=== PATIENT | female | born 2000 | race Two or more races ===

== ENCOUNTER 2021-05-15 09:13 | Emergency (ER) | payer BC, OTHER ==
[~2021-05-15] VITALS: Ht 157.5 cm; Wt 89.1 kg
[~2021-05-15 09:13] MED LIST: AZIT500T2 PO; DOCU-131 PO; FERR240T PO; IBUP-1222 PO; OXYC1TAB12 PO
[2021-05-15] MEDS ORDERED: HYDROcodone/APAP 5/325 TABLET PO ONE (10:00)
[2021-05-15] MEDS ORDERED: SODIUM CHLORIDE FLUSH 10ML SYR IVF ONE (10:00)
[2021-05-15] MEDS ORDERED: HYDROcodone/APAP 5/325 TABLET ONE (10:09)
--- NOTE | 2021-05-15 10:13 | NUR ---
THIS IS A 21 YO F W/ C/O RLQ ABD PAIN THAT RADIATES INTO RT FLANK STARTING YESTRDAY. PT REPORTS HX OF RUTPTURED OVARIAN CYST THAT REQUIRED SX D/T BLEEDING. PT STATES CURRENTLY ON PERIOD. PT RESTING ON GURNEY W/ CALL LIGHT IN REACH AND SIDE RAILS UPX2. RESP EVEN AND UNLABORED, NADN. PIV STARTED, LABS DRAWN. PT AMBULATORY W/ A STEADY GAIT TO THE BR. URINE COLLECTED AND SENT TO LAB. PT MEDICATED PER EMAR.
[2021-05-15 10:20] LABS: MICROSCOPIC AUTO
[2021-05-15 10:26] LABS: BASOPHILS % (AUTO) 1 % (0-1); EOSINOPHILS % (AUTO) 1 % (1-7); LYMPHOCYTES % (AUTO) 20 % (22-44); MEAN CORPUSCULAR HEMOGLOBIN 30.4 pg (27.0-34.8); MEAN CORPUSCULAR HGB CONC 33.5 g/dL (32.4-35.8); MEAN PLATELET VOLUME 8.7 fL (7.4-10.4); MONOCYTES % (AUTO) 4 % (2-9); NEUTROPHILS % (AUTO) 74 % (42-75); PLATELET COUNT 282 x10^3/uL (130-400); RED CELL DISTRIBUTION WIDTH 12.7 % (9.6-15.2)
[2021-05-15 10:29] LABS: ALANINE AMINOTRANSFERASE 32 U/L (12-78); ALBUMIN 4.2 g/dL (3.4-5.0); ANION GAP 7 mmol/L (5-15); CALCIUM 9.6 mg/dL (8.5-10.1); CHLORIDE 107 mmol/L (98-107); CREATININE 0.66 mg/dL (0.55-1.02)
[2021-05-15 10:34] LABS: ALKALINE PHOSPHATASE 68 U/L (45-117); BILIRUBIN,TOTAL 0.4 mg/dL (0.2-1.0); TOTAL PROTEIN 8.1 g/dL (6.4-8.2)
--- NOTE | 2021-05-15 10:45 | NUR ---
PT TO CT.
--- NOTE | 2021-05-15 11:24 | NUR ---
AT BEDSIDE FOR RECHECK.
[2021-05-15 11:57] VITALS: BP 117/73
--- NOTE | 2021-05-15 12:09 | NUR ---
Patient given discharge instructions and they have confirmed that they understand the instructions. Patient ambulatory with steady gait.
== END 2021-05-15 12:10 | disposition home or self-care (01) ==
LOC: ED 12:05
DX: R10.31 Right lower quadrant pain (principal)
CPT/HCPCS: 36415; 74176; 80053; 81001; 83690; 84703; 85025; 99284